=== PATIENT | female | born 1960 | race Two or more races ===

== ENCOUNTER 2025-01-30 15:12 | Outpatient (CLI) | payer OTHER | END 2025-01-30 15:29 | disposition home or self-care (01) | LOC: MAMO-SONO 15:12 | PROVIDERS: ATTEND Surgery | DX: C50.111 Malignant neoplasm of central portion of right female breast (principal); N60.11 Diffuse cystic mastopathy of right breast; N60.12 Diffuse cystic mastopathy of left breast ==

== ENCOUNTER 2025-03-02 06:38 | Day surgery (SDC) | payer OTHER ==
[2025-02-08 08:51] LABS: URINE APPEARANCE Clear; URINE BILIRRUBIN Negative (NEGATIVE); URINE BLOOD Trace; URINE COLOR Yellow; URINE GLUCOSE Negative (NEGATIVE); URINE KETONE Negative (NEGATIVE); URINE LEUKOCYTE Moderate; URINE NITRATE Negative; URINE PROTEIN Negative (NEGATIVE); URINE UROBILINOGEN 0.2 E.U./dl
[2025-02-08 08:53] LABS: URINE BACTERIA 103.9 uL (0.0-1933); URINE EPITHELIAL CELLS 68.8 uL (0.0-38.8); URINE RBC 7.2 uL (0.0-20.8); URINE WBC 60.1 uL (0.0-23.2)
[2025-02-08 09:00] LABS: HEMATOCRIT 32.4 % (36.0-45.00); HEMOGLOBIN 10.7 g/dL (12.0-15.00); MEAN CELL VOLUME 96.3 fL (80.00-100.00); MEAN CORPUSCULAR HEMOGLOBIN 31.7 pg (27.00-32.0); PLATELET COUNT 263 K/uL (150-450); RED BLOOD COUNT 3.37 M/uL (4.00-6.00); RED CELL DISTRIBUTION WIDTH 16.8 % (11.5-14.5)
[2025-02-08 09:19] LABS: PROTHROMBIN TIME 10.9 SECONDS (9.0-11.5)
[2025-02-08 09:20] LABS: PARTIAL THROMBOPLASTIN TIME 41.2 SECONDS (22.0-34.0)
[2025-02-08 10:12] LABS: CALCIUM 8.9 mg/dL (8.5-10.1); CREATININE SERUM 0.75 mg/dL (0.55-1.02); GFR 78.05; POTASSIUM 3.69 mEq/L (3.5-5.1)
[2025-02-08 10:34] VITALS: BP 124/84
[~2025-03-02] VITALS: Ht 149.9 cm; Wt 78.9 kg
[~2025-03-02 06:38] MED LIST: AMLODIPINE-OLM1 EAC2; COZAAR25 MG; IRON236 MG; PEPCID AC20 MG PO; SIMVASTATIN80 MG; TYLENOL ARTHRI650 MG PO; VITAMIN D
[2025-03-02] MEDS ORDERED: CHLORHEXIDINE GLUCONATE 120 ML BOTTLE TOP ONE (12:30)
[2025-03-02] MEDS ORDERED: CEFAZOLIN SODIUM 1,000 MG VIAL IV ONE ×2 (12:30)
[2025-03-02] MEDS ORDERED: EPINEPHRINE HCL/PF 1 MG/ML AMPUL IR ONE (12:30)
[2025-03-02] MEDS ORDERED: TRANEXAMIC ACID 100MG/1ML (1000MG) AMPUL IV SCH (12:30)
[2025-03-02] MEDS ORDERED: GENTAMICIN SULFATE 40 MG/ML VIAL IR ONE (12:30)
[2025-03-02] MEDS ORDERED: TRANEXAMIC ACID 100MG/1ML (1000MG) AMPUL IV ONE (12:30)
[2025-03-02] MEDS ORDERED: NITROGLYCERIN 1 INCH OINT..GM. TD ONE (13:20)
== END 2025-03-02 18:00 | disposition home or self-care (01) ==
LOC: CIR.AMB 06:38
PROVIDERS: ATTEND Surgery
DX: C50.111 Malignant neoplasm of central portion of right female breast (principal); C50.411 Malignant neoplasm of upper-outer quadrant of right female breast; C77.3 Secondary and unspecified malignant neoplasm of axilla and upper limb lymph nodes; N65.1 Disproportion of reconstructed breast; N62 Hypertrophy of breast; I10 Essential (primary) hypertension; E78.5 Hyperlipidemia, unspecified